=== PATIENT | female | born 1965 | race Caucasian/White ===

== ENCOUNTER 2016-12-19 11:23 | Day surgery (SDC) | payer OTHER ==
[~2016-12-19] VITALS: Ht 165.1 cm; Wt 122.0 kg
[~2016-12-19 11:23] MED LIST: ASPIR-TRIN325 M1 PO; BACTRIM,SEPT1 TABLET PO; CELEBREX; CELEBREX50 MG PO; CETIRIZINE HCL10 M2 PO; CLINDAMYCIN HC300 MG PO; COZAAR100 MG PO; COZAAR50 MG PO; CYCLOBENZAPRINE10 MG PO; Cozaar PO; ENDOCET 7.5-321 EACH PO; FLEXERIL10 MG PO; FLOVENT 11120 INHALA IH; FUTURO RESTORI1 EACH MC; HYDROCHLOROTH12.5 M2 PO; HYDROCHLOROTH12.5 M3 PO; HYDROCHLOROTHIA25 MG PO; IRON325 M1 PO; LEXAPRO10 MG PO; LOSARTAN POTASS25 MG PO; LYRICA PO; LYRICA100 MG PO; MELOXICAM7.5 MG PO; MOBIC7.5 MG PO; NAPROSYN500 MG PO; NAPROXEN500 MG PO; NEURONTIN300 MG PO; Nitrostat,NitroQuick SL; OXYCODONE-APAP1 EACH PO; PRILOSEC20 MG PO; PROZAC20 MG PO; Protonix PO; Ultram PO; VENTOLIN HFA18 GM IH; ZESTRIL,PRINIVI40 MG PO; ZOFRAN ODT8 MG PO; ZOFRAN4 MG PO; ZYRTEC10 M1 PO
== END 2016-12-19 14:00 | disposition home or self-care (01) ==
LOC: PAIN 11:23 → SDC 13:30 → PAIN 14:00
DX: M46.1 Sacroiliitis, not elsewhere classified (principal); F41.9 Anxiety disorder, unspecified; M53.3 Sacrococcygeal disorders, not elsewhere classified; G89.4 Chronic pain syndrome; G62.9 Polyneuropathy, unspecified; Z87.891 Personal history of nicotine dependence; Z86.73 Personal history of transient ischemic attack (TIA), and cerebral infarction without residual deficits; E66.01 Morbid (severe) obesity due to excess calories; Z68.42 Body mass index [BMI] 45.0-49.9, adult; Z88.0 Allergy status to penicillin
CPT/HCPCS: J1030; J2250; J3010; S0020

== ENCOUNTER 2017-06-28 14:43 | Emergency (ER) | payer OTHER ==
[~2017-06-28] VITALS: Ht 165.1 cm; Wt 124.7 kg
[2017-06-28] MEDS ORDERED: TESSALON200 MG PO (15:17)
[2017-06-28] MEDS ORDERED: PREDNISONE50 MG PO (15:17)
[2017-06-28 15:31] VITALS: BP 140/80
== END 2017-06-28 15:31 | disposition home or self-care (01) ==
LOC: EME 14:43
DX: J45.901 Unspecified asthma with (acute) exacerbation (principal); I10 Essential (primary) hypertension; F41.9 Anxiety disorder, unspecified; Z86.73 Personal history of transient ischemic attack (TIA), and cerebral infarction without residual deficits; Z88.0 Allergy status to penicillin
CPT/HCPCS: 93005; 99281; 99283

== ENCOUNTER 2017-07-29 07:58 | Day surgery (SDC) | payer OTHER ==
[~2017-07-29] VITALS: Ht 165.1 cm; Wt 122.0 kg
[~2017-07-29 07:58] MED LIST changes: +GLUCOPHAGE500 MG PO; +PREDNISONE50 MG PO; +TESSALON200 MG PO
[2017-07-29 08:35] LABS: POINT-OF-CARE METER ID UU14174212
== END 2017-07-29 10:00 | disposition home or self-care (01) ==
LOC: PAIN 07:58 → SDC 08:30 → PAIN 08:30
PROVIDERS: Anesthesiology Pain Medicine
DX: M53.3 Sacrococcygeal disorders, not elsewhere classified (principal); M46.1 Sacroiliitis, not elsewhere classified; M79.7 Fibromyalgia; M47.816 Spondylosis without myelopathy or radiculopathy, lumbar region; I10 Essential (primary) hypertension; G47.30 Sleep apnea, unspecified; J45.20 Mild intermittent asthma, uncomplicated; E11.40 Type 2 diabetes mellitus with diabetic neuropathy, unspecified; F41.8 Other specified anxiety disorders; D50.9 Iron deficiency anemia, unspecified; E66.01 Morbid (severe) obesity due to excess calories; Z68.41 Body mass index [BMI] 40.0-44.9, adult; Z79.84 Long term (current) use of oral hypoglycemic drugs; Z87.891 Personal history of nicotine dependence
CPT/HCPCS: 82948; J1030; J2250; J3010; S0020

== ENCOUNTER 2017-12-27 12:06 | Emergency (ER) | payer OTHER ==
[~2017-12-27] VITALS: Ht 165.1 cm; Wt 124.3 kg
[2017-12-27] MEDS ORDERED: VOLTAREN 1% GE100 GM TP (17:35)
[2017-12-27] MEDS ORDERED: BACLOFEN10 MG PO (17:35)
[2017-12-27 17:54] VITALS: BP 148/68
== END 2017-12-27 18:01 | disposition home or self-care (01) ==
LOC: EME 12:06
DX: S50.01XA Contusion of right elbow, initial encounter (principal); M25.551 Pain in right hip; E11.9 Type 2 diabetes mellitus without complications; I10 Essential (primary) hypertension; E78.5 Hyperlipidemia, unspecified; M79.7 Fibromyalgia; W07.XXXA Fall from chair, initial encounter; Z88.0 Allergy status to penicillin; Z87.891 Personal history of nicotine dependence
CPT/HCPCS: 73080; 82948; 99281; 99284

== ENCOUNTER 2018-02-09 11:27 | Emergency (ER) | payer OTHER ==
[~2018-02-09] VITALS: Ht 165.1 cm; Wt 117.3 kg
[~2018-02-09 11:27] MED LIST changes: +BACLOFEN10 MG PO; +VOLTAREN 1% GE100 GM TP
[2018-02-09 12:16] LABS: HEMATOCRIT 37.1 % (36.0-46.0); HEMOGLOBIN 12.1 G/DL (11.9-15.5); MCH 28.9 PG (29.0-34.0); MCHC 32.6 G/DL (30.0-36.0); MCV 88.8 FL (83-99); PLATELET COUNT 311 K/uL (156-360); RBC DIS.WIDTH-CV 12.7 % (11.8-14.6); RBC DIS.WIDTH-SD 41.3 % (39-53); RED BLOOD COUNT 4.18 M/uL (3.80-5.20); WHITE BLOOD COUNT 8.9 K/uL (4.1-10.2)
[2018-02-09 12:25] LABS: CHLORIDE 96 mEq/L (99-109); POTASSIUM 3.1 mEq/L (3.7-5.4); SODIUM 138 mEq/L (136-147)
[2018-02-09 12:26] LABS: GLUCOSE 146 mg/dL (70-99)
[2018-02-09 12:30] LABS: CREATININE 0.7 mg/dL (0.6-1.3); GFR ESTIMATE (CALCULATED) > 59 mL/min/
[2018-02-09 12:31] LABS: UREA NITROGEN (BUN) 13 mg/dL (9-23)
[2018-02-09 12:37] LABS: TROP-I INTERPRETATION NEGATIVE; TROPONIN-I < 0.01 ng/mL (0.0-0.30)
[2018-02-09 21:11] VITALS: BP 142/67
== END 2018-02-09 21:12 | disposition home or self-care (01) ==
LOC: EME 11:27
PROVIDERS: Nurse Practitioner Family
DX: R07.9 Chest pain, unspecified (principal); M54.6 Pain in thoracic spine; Z98.890 Other specified postprocedural states; R05 Cough; R10.30 Lower abdominal pain, unspecified; Z90.49 Acquired absence of other specified parts of digestive tract; I10 Essential (primary) hypertension; J45.909 Unspecified asthma, uncomplicated; Z88.0 Allergy status to penicillin; E11.9 Type 2 diabetes mellitus without complications; Z79.84 Long term (current) use of oral hypoglycemic drugs
CPT/HCPCS: 71046; 71275; 74177; 78582; 80048; 82948; 84484; 85027; 93005; 99281; 99285; A9540; A9567; J2270; J7030

== ENCOUNTER 2018-02-11 21:22 | Emergency (ER) | payer OTHER ==
[~2018-02-11] VITALS: Ht 165.1 cm; Wt 117.7 kg
[2018-02-11 22:50] VITALS: BP 110/54
== END 2018-02-11 22:51 | disposition home or self-care (01) ==
LOC: EME 21:22
DX: R10.30 Lower abdominal pain, unspecified (principal); R50.9 Fever, unspecified; Z98.890 Other specified postprocedural states; Z48.01 Encounter for change or removal of surgical wound dressing; I10 Essential (primary) hypertension; J45.909 Unspecified asthma, uncomplicated; Z86.73 Personal history of transient ischemic attack (TIA), and cerebral infarction without residual deficits; Z88.0 Allergy status to penicillin; Z90.49 Acquired absence of other specified parts of digestive tract
CPT/HCPCS: 99281; 99284

== ENCOUNTER → 2018-07-09 | Outpatient (CLI) | payer OTHER ==
[~2018-07-09] MED LIST changes: +ALL DAY ALLERGY10 M3 PO; +DYAZIDE, MA1 CAPSULE PO; +LYRICA150 MG PO; +OMEPRAZOLE40 M1 PO; +PRAVACHOL10 MG PO
[2018-07-09 09:02] LABS: HEMATOCRIT 40.5 % (36.0-46.0); HEMOGLOBIN 13.3 G/DL (11.9-15.5); MCH 28.9 PG (29.0-34.0); MCHC 32.8 G/DL (30.0-36.0); MCV 87.9 FL (83-99); PLATELET COUNT 219 K/uL (156-360); RBC DIS.WIDTH-CV 12.7 % (11.8-14.6); RBC DIS.WIDTH-SD 39.9 % (39-53); RED BLOOD COUNT 4.61 M/uL (3.80-5.20); WHITE BLOOD COUNT 5.1 K/uL (4.1-10.2)
[2018-07-09 09:10] LABS: PTT 28.4 SEC (25-37)
== END | disposition home or self-care (01) ==
LOC: OPR 08:00 → EDSTATUS 07-14 08:00 → OPR 07-14 08:00
PROVIDERS: Anesthesiology
PROC: 0FB13ZX Excision of Right Lobe Liver, Percutaneous Approach, Diagnostic (ICD-10-PCS; principal; 2018-07-09)
DX: C7A.00 Malignant carcinoid tumor of unspecified site (principal); C7B.02 Secondary carcinoid tumors of liver
CPT/HCPCS: 71045; 77012; 82948; 85027; 85610; 85730; 88305; 88341 TC; 88342 TC; J3010

== ENCOUNTER 2018-07-10 10:16 | Emergency (ER) | payer OTHER ==
[~2018-07-10] VITALS: Ht 165.1 cm; Wt 127.0 kg
[2018-07-10 11:41] LABS: HEMATOCRIT 40.8 % (36.0-46.0); HEMOGLOBIN 13.5 G/DL (11.9-15.5); MCH 29.2 PG (29.0-34.0); MCHC 33.1 G/DL (30.0-36.0); MCV 88.3 FL (83-99); PLATELET COUNT 183 K/uL (156-360); RBC DIS.WIDTH-CV 12.6 % (11.8-14.6); RBC DIS.WIDTH-SD 40.5 % (39-53); RED BLOOD COUNT 4.62 M/uL (3.80-5.20); WHITE BLOOD COUNT 5.2 K/uL (4.1-10.2)
[2018-07-10 11:46] LABS: ALBUMIN 3.8 g/dL (3.2-4.8)
[2018-07-10 11:47] LABS: CHLORIDE 102 mEq/L (99-109); SODIUM 141 mEq/L (136-147)
[2018-07-10 11:49] LABS: GLUCOSE 112 mg/dL (70-99); TOTAL PROTEIN 6.9 g/dL (6.4-8.3)
[2018-07-10 11:51] LABS: TOTAL BILIRUBIN 0.5 mg/dL (0.0-1.0)
[2018-07-10 11:52] LABS: ALKALINE PHOSPHATASE 101 IU/L (3-129)
[2018-07-10 11:53] LABS: CREATININE 0.7 mg/dL (0.6-1.3); GFR ESTIMATE (CALCULATED) > 59 mL/min/
[2018-07-10 11:54] LABS: AST (GOT) 20 IU/L (2-34); UREA NITROGEN (BUN) 17 mg/dL (9-23)
[2018-07-10 11:56] LABS: ALT (GPT) 26 IU/L (3-49); LIPASE 19 U/L (1.0-51.0)
[2018-07-10 14:46] VITALS: BP 148/76
== END 2018-07-10 14:46 | disposition home or self-care (01) ==
LOC: EME 10:16
PROVIDERS: Emergency Medicine
DX: R10.9 Unspecified abdominal pain (principal); Z98.890 Other specified postprocedural states; J45.909 Unspecified asthma, uncomplicated; F41.9 Anxiety disorder, unspecified; Z86.73 Personal history of transient ischemic attack (TIA), and cerebral infarction without residual deficits; Z90.49 Acquired absence of other specified parts of digestive tract; Z88.0 Allergy status to penicillin
CPT/HCPCS: 74176; 80053; 83605; 83690; 85027; 99281; 99285; J3010; J7030